=== PATIENT | male | born 1985 | race Caucasian/White ===

== ENCOUNTER 2016-09-21 11:37 | Inpatient (IN) | payer OTHER ==
[~2016-09-21] VITALS: Ht 185.4 cm; Wt 94.7 kg
[2016-09-21 11:39] VITALS: BP 124/80; PULSE 58; RESP 20; O2SAT 98
[2016-09-21] MEDS ORDERED: Ondansetron 2 mg/mL 2 mL Inj IVPUSH ONE (12:25)
[2016-09-21 12:36] LABS: BASOPHILS % (AUTO) 0.1 % (0-3); EOSINOPHILS % (AUTO) 0 % (0-5); MONOCYTES % (AUTO) 4.1 % (4-12); Mean Corpuscular Hemoglobin 30.4 pg (27.0-35.0); Mean Corpuscular Volume 87.7 fL (81-100); NEUTROPHILS % (AUTO) 87.8 % (40-74); Platelet Count 276 bil/L (150-400)
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
[2016-09-21] MEDS: HYDROmorphone 0.5 mg/0.5 mL iSecure Syringe IVPUSH PRN ×3 (12:44→21:20)
[2016-09-21 13:21] VITALS: BP 116/74; PULSE 49; O2SAT 96
[2016-09-21 13:24] LABS: Magnesium 1.8 mg/dL (1.6-2.6)
--- NOTE | 2016-09-21 15:03 | DRSVH ---
PROCEDURE: CT ABDOMEN AND PELVIS WITH CONTRAST ([id number]) INDICATIONS: Pancreatitis TECHNIQUE: After the administration of intravenous contrast, 5 mm thick sections acquired from the diaphragm to the symphysis. 5 mm coronal and sagittal reformats were acquired. For radiation dose reduction, the following was used: automated exposure control, adjustment of mA and/or kV according to patient siz e. COMPARISON: None. FINDINGS: Image quality: Excellent. ABDOMEN: Lung bases: Lung bases are clear. Heart size is normal. Solid organs: Liver and spleen are normal in size and enhancement. Gallbladder contains few non-rad iopaque gallstones and/or sludge. There is age indeterminate gallbladder wall thickening. Mild promin ence of the extrahepatic ducts are not visualized etiology. Pancreas enhances normally. However ther e is peripancreatic fat stranding. No adrenal nodules. Kidneys demonstrate normal size and enhancem ent, without hydronephrosis. Peritoneum and bowel: Bowel loops demonstrate normal wall thickness and caliber. No free air. There is mild scattered ascites. The appendix and rectum appear grossly unremarkable. No evidence of acute diverticulitis. Nodes and vessels: No retroperitoneal or mesenteric adenopathy by size criteria. Aorta and inferior vena cava are normal in size. Miscellaneous: No ventral hernias. PELVIS: Genitourinary: Bladder decompressed otherwise unremarkable. Miscellaneous: Small fat containing right inguinal hernia Bones: No suspicious bony lesions. No vertebral body compression fractures. IMPRESSION: Cholelithiasis and or gallbladder sludge. There is mild gallbladder wall thickening raising possibili ty of acute cholecystitis. Please correlate clinically and with LFTs. Peripancreatic fat stranding which is suspicious for acute pancreatitis. Recommend correlation with p ancreatic enzymes. No abscess seen. Scattered ascites. Normal appendix. Dictated by: Fuentes Zambrano M.D. on 09/21/2016 at 14:58 Approved by: Fuentes Zambrano M.D. on 09/21/2016 at 15:01
[2016-09-21] MEDS ORDERED: Alum-Mag Hydrox-Simeth 30 mL Suspension PO PRN (15:05)
[2016-09-21] MEDS ORDERED: Polyethylene Glycol (PEG) 17 Gm Powder PO PRN (15:05)
[2016-09-21] MEDS ORDERED: Ondansetron 2 mg/mL 2 mL Inj IVPUSH PRN (15:05)
[2016-09-21] MEDS ORDERED: HYDROmorphone 0.5 mg/0.5 mL iSecure Syringe IVPUSH PRN (15:10)
[2016-09-21 15:46] VITALS: BP 146/81; PULSE 61; RESP 18; O2SAT 99
--- NOTE | 2016-09-21 15:49 | PCM.CONSUR ---
Subjective Date of Service: Sep 21, 2016 History of Present Illness Mr. Dillard is a 31 year old male who presents to the ED today with right upper quadrant pain. The patient reports he has been intermittently experiencing RUQ pain for the past 18 months. In July of this year he was admitted for 3 days at [facility] with gallstone pancreatitis after presenting with a severe episode of pain. His lipase at that time was in excess of 10,000 and he was treated with conservative management. He has since been adherent to a low fat diet but continues to experience intermittent, self- limited bouts of pain. It is in this context that 2 days ago he developed severe RUQ pain, exactly similar to past episodes. This pain was rated 9/10 in severity so he was evaluated at an outside ED. There, he was given pain meds but was discharged home. His RUQ has improved, but persists in moderate severity prompting today's visit to the ED. With further questioning he describes the pain has sharp, unrelenting, waxing and waning in intensity. He has had no nausea but endorses one episode of vomiting during a severe wave of pain. He has had very little to eat or drink since the pain started. His last BM was 2 days ago and was presumably normal. He is voiding but states his urine is more concentrated appearing. He denies jaundice or fevers. Reason for Consultation Gallstone pancreatitis Allergy Allergies: Uncoded Allergies: BEES (Allergy, Unknown, 03/22/15) Past Surgical History Surgeries: No Social History Occupation: He works at a [employer] Hx Alcohol Use: No Hx Substance Use: No Hx Tobacco Use: No PMH Cardiovascular History Cardiovascular History: Denies:: Congestive Heart Failure Hypertension Respiratory Respiratory History: Denies:: Tuberculosis Other History Diabetes: No Social History Hx Alcohol Use: NoHx Substance Use: No Smoking Status: Never Smoker Living Arrangement: with Family Family History Family History: His mother had her gallbladder removed in her 40s. No other history of gallstone disease or other GI conditions. Objective Exam Vital Signs & I/O Vital Sign- Last 8 Hours Date Time Temp Pulse Resp B/P Pulse Ox O2 Delivery O2 Flow Rate FiO2 09/21/16 13:21 36.9 49 116/74 96 Room Air 09/21/16 11:39 36.6 58 20 124/80 98 Room Air Lab & Micro Results Laboratory Tests Test 7/29/17 12:27 White Blood Count 10.9th/mm3 (3.8-10.1) Red Blood Count 5.13mil/mm3 (4.40-5.80) Hemoglobin 15.6g/dL (13.8-17.2) Hematocrit 45.0% (41.0-50.0) Mean Corpuscular Volume 87.7fL (81-100) Mean Corpuscular Hemoglobin 30.4pg (27.0-35.0) Mean Corpuscular Hemoglobin Concent 34.7% (32.0-37.0) Red Cell Distribution Width 12.3% (12.3-15.4) Platelet Count 276bil/L (150-400) Neutrophils (%) (Auto) 87.8% (40-74) Lymphocytes (%) (Auto) 7.8% (14-46) Monocytes (%) (Auto) 4.1% (4-12) Eosinophils (%) (Auto) 0% (0-5) Basophils (%) (Auto) 0.1% (0-3) Sodium Level 143mEq/L (134-144) Potassium Level 3.8mEq/L (3.5-5.2) Chloride Level 104mEq/L (97-108) Carbon Dioxide Level 23mmol/L (18-29) Blood Urea Nitrogen 7mg/dL (6-20) Creatinine 0.81mg/dL (0.76-1.27) Estimat Glomerular Filtration Rate 117mL/min (>59) Glucose Level 118mg/dL (60-99) Calcium Level 9.5mg/dL (8.5-10.1) Magnesium Level 1.8mg/dL (1.6-2.6) Total Bilirubin 1.0mg/dL (0.0-1.2) Aspartate Amino Transf (AST/SGOT) 143U/L (0-50) Alanine Aminotransferase (ALT/SGPT) 269U/L (0-44) Alkaline Phosphatase 97U/L (25-150) Total Protein 7.0g/dL (6.4-8.4) Albumin 4.6g/dL (3.4-5.0) Lipase 3420U/L (13-60) Hold Shafer Top Tube Received (Received) Result Diagram: 09/21/16 1227 7/29/17 1227 Review of Systems: Constitutional: Negative, except as otherwise mentioned in the history above. Ophthalmologic: Negative, except as otherwise mentioned in the history above. Cardiovascular: Negative, except as otherwise mentioned in the history above. Respiratory: Negative, except as otherwise mentioned in the history above. Gastrointestinal: Negative, except as otherwise mentioned in the history above. Genitourinary: Negative, except as otherwise mentioned in the history above. Musculoskeletal: Negative, except as otherwise mentioned in the history above. Neurological: Negative, except as otherwise mentioned in the history above. Psychiatric: Negative, except as otherwise mentioned in the history above. Hematologic/Lymphatic: Negative, except as otherwise mentioned in the history above. Allergic/Immunologic: Negative, except as otherwise mentioned in the history above. Additional Information CT A/P obtained 07/27/2016 reveals common bile duct dilation to 7 mm with question of a distal common duct stone. There is peripancreatic fat stranding and haziness consistent with acute pancreatitis. US abdomen obtained 07/27/16 reveals numerous gall stones, no gallbladder wall thickening. H&P Surgical Exam Exam General: Alert, Oriented X3, Cooperative, No Acute Distress HEENT: Within normal limits & unremarkable Neck: Within normal limits & unremarkable Respiratory: Clear to Auscultation Cardiac: Exam Unremarkable Abdomen: Other (Soft and nondistended. Tender in the RUQ, LLQ and RLQ, but most severely in the RUQ. Negative muprhy's sign. No appreciable masses. ) Breasts: Not Indicated Pelvic: Not Indicated Assessment & Plan Assessment 31M with cholelithiasis and recurrent gallstone pancreatitis. Plan: Given that the patient has gallstone pancreatitis, he should be admitted to the medicine service for management likely to consist of NPO status, pain control, and IV hydration. He should not proceed to the operating room at this time, given his pancreatic inflammation. However, we will perform a cholecystectomy prior to discharge. This was explained to the patient and his and they are in agreement of the plan. We will continue to follow along in the patient' s care and proceed to the operating room once his lipase downtrends or begins to normalize. Thank you for the interesting consultation. This case was discussed with Dr. Wing. Morgan Hung MD Sep 21, 2016 15:49
[2016-09-21] MEDS: Heparin 5,000 Unit/mL Inj SUBQ SCH (16:09)
[2016-09-21] MEDS: 0.9% Sodium Chloride 1,000 ML IV SCH ×2 (16:10→21:19)
--- NOTE | 2016-09-21 16:28 | NUR ---
Admit Pt admitted to 1012. AOX3. Full admission completed. Pt NPO, NS infusing X1 Liter per M.D. orders. Pain meds PRN. Independent in room. Oriented to room. No tele. Care ongoing. Pt aware of plan of care.
[2016-09-21 20:40] VITALS: BP 110/61; PULSE 73; RESP 16; O2SAT 97
[2016-09-21] MEDS: Famotidine Inj 20 MG in IV Premix 1 EACH IV SCH (21:19)
[2016-09-22] MEDS: Heparin 5,000 Unit/mL Inj SUBQ SCH ×3 (00:10→17:25)
[2016-09-22 00:35] VITALS: BP 110/63; PULSE 57; RESP 16; O2SAT 95
--- NOTE | 2016-09-22 00:51 | PCM.HPMED ---
Subjective Date of Service Sep 21, 2016 Primary Provider: Admitting Physician: Alexsandra Wing MD Primary Care Physician: Ronny Martinez MD Attending Physician: Alexsandra Wing MD Admit Status: From the Emergency Department, Admit to [place] Team Chief Complaint: Abdominal pain History of Present Illness: Mr. Dillard is a 31 year old male who presents to the ED today with right upper quadrant pain and epigastric pain. The patient reports he has been intermittently experiencing RUQ pain for the past 18 months. In July of this year he was admitted for 3 days at [facility] with gallstone pancreatitis after presenting with a severe episode of pain. His lipase at that time was in excess of 10,000 and he was treated with conservative management. He has since been adherent to a low fat diet but continues to experience intermittent, self- limited bouts of crampy pain. It is in this context that 2 days ago he developed severe RUQ pain, exactly similar to past episodes. This pain was rated 9/10 in severity so he was evaluated at [facility] ED. There, he was given narcotics and was discharged home. His RUQ has improved, but persists in moderate severity prompting today's visit to the [facility] ED. With further questioning he describes the pain has sharp, unrelenting, waxing and waning in intensity. He denies radiation to his shoulder blades are back. He has had no nausea but endorses one episode of vomiting during a severe wave of pain. He has had very little to eat or drink since the pain started. His last BM was 2 days ago and was presumably normal (Goes every other day at his base line). He is voiding but states his urine is more concentrated appearing. He denies jaundice or fevers. Patient states he is healthy at base line, currently in the room. As 5-110 depending on when he got pain medication In the ER patient's labs are fairly unremarkable with the exception of AST is 143 ALT is 269 lipase 3420. 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 [place] Hx Alcohol Use: No Hx Substance Use: No Hx Tobacco Use: No Smoking Status: Never Smoker Living Arrangement: with Family Exam Vital Signs Vital Sign - Last Date Time Temp Pulse Resp B/P Pulse Ox O2 Delivery O2 Flow Rate FiO2 09/21/16 13:21 36.9 49 116/74 96 Room Air 09/21/16 11:39 20 Exam General: Pleasant, age-appropriate male in no acute distress HEENT: PERRLA, EOMI, nonicteric, membranes moist Lymph: No lymphadenopathy Cardio: Regular rate and rhythm no murmurs rubs or gallops Respiratory: CTA bilaterally, no wheezes, no crackles Abdomen: Soft, positive bowel sounds, mild tenderness over epigastrium and RUQ Extremities: No edema, 4.5/5 strength, sensation intact Psych: Appropriate mood and affect Neuro: Alert and Oriented x 3 Skin: No rash Neck: No JVD, trachea is central Lab and Diagnostics Result Diagram: 09/21/16 1227 09/21/16 1227 X-Rays, CTs and MRIs INDICATIONS: Pancreatitis IMPRESSION: Cholelithiasis and or gallbladder sludge. There is mild gallbladder wall thickening raising possibility of acute cholecystitis. Please correlate clinically and with LFTs. Peripancreatic fat stranding which is suspicious for acute pancreatitis. Recommend correlation with pancreatic enzymes. No abscess seen. Scattered ascites. Normal appendix. Dictated by: Fuentes Zambrano M.D. on 09/21/2016 at 14:58 Approved by: Fuentes Zambrano M.D. on 09/21/2016 at 15:01 Assessment & Plan Acute Pancretitis, POA -- NSS 200 cc/hr--> NSS 150 cc/hr -- Improved control with Dilaudid 0.25 mg every 3 hours when necessary, ketorolac 30 mg every 6 hours when necessary -- Discuss with GI whether there is a need for MRCP, patient has stones, mild inflammation of the gallbladder, no CBD dilation on CT scan Acute cholecystitis with an admission -- Consult general surgery, that already aware -- Pain control as above -- Once pancreatitis calms down patient will be taken to the OR per surgery -- Patient has no fevers, we will work with the Center to see if antibiotics are called for Nausea, present on admission -- Continue IV Zofran Abdominal pain, is about admission -- Continue pain medications as above Pain Evaluation: Adequate Pain Control Resuscitation Status: CPR: Attempt Resuscitation ( is his ADM) Time spent 40 min Emeli Kingston DO Sep 21, 2016 15:07
[2016-09-22] MEDS: 0.9% Sodium Chloride 1,000 ML IV SCH ×6 (03:55→22:10)
--- NOTE | 2016-09-22 05:40 | NUR ---
NOC PT pain has been minimal through the night. PT medicated so far with dilaudid once and toradol twice. Toradol works well for him. NS infusing at 150ml. PT voiding per urinal briana colored urine. NPO. VS WNL. No nausea reported. WIll CTM. SLept well.
[2016-09-22 06:33] VITALS: BP 103/64; O2SAT 98
[2016-09-22 07:01] LABS: BASOPHILS % (AUTO) 0.2 % (0-3); MONOCYTES % (AUTO) 7.3 % (4-12); Mean Corpuscular Hemoglobin 30.6 pg (27.0-35.0); Mean Corpuscular Volume 89.4 fL (81-100); NEUTROPHILS % (AUTO) 71.3 % (40-74); Platelet Count 237 bil/L (150-400)
[2016-09-22] MEDS ORDERED: Potassium Chloride Inj 20 MEQ in Dextrose 5% 250 ML IV ONE (07:55)
--- NOTE | 2016-09-22 09:08 | NUR ---
MRI Pt SL to leave via WC to MRI.
--- NOTE | 2016-09-22 09:36 | PCM.PNSURG ---
Subjective Date of Service: Sep 22, 2016 Visit Information: Gallstone Pancreatitis Date of Admission: Sep 21, 2016 at 13:50 Hospital Day # 2 Subjective: Pain improving Objective Vital Sign- Last 8 Hours Date Time Temp Pulse Resp B/P Pulse Ox O2 Delivery O2 Flow Rate FiO2 09/22/16 06:33 37.1 103/64 98 Room Air Intake and Output- Last 8 Hour 09/22/16 Cumulative From/Thru 07:00 09/21/16 11:39 - 09/22/16 06:33 Intake Total 0 ml 391 ml Output Total 450 ml 700 ml Balance -450 ml -309 ml Intake Oral 0 ml 0 ml IV Total 391 ml Output Urine Total 450 ml 700 ml # Bowel Movements 0 0 Abdomen: Soft, Other (minimal tenderness) Result Diagram: 09/22/16 0610 09/22/16 0610 Assessment & Plan Impression Gallstone Pancreatitis - Improving Problems: Plan Clear liquid diet with NPO in AM until rounds every morning Follow Amylase & Lipase daily Will plan Lap Leia with grams sometime this week prior to discharge Ambulate Incentive spirometry Resuscitation Status: CPR: Attempt Resuscitation ( is his ADM) Alexsandra Wing MD Sep 22, 2016 09:36
[2016-09-22] MEDS: Famotidine Inj 20 MG in IV Premix 1 EACH IV SCH ×2 (09:48→21:28)
--- NOTE | 2016-09-22 10:11 | DRSVH ---
PROCEDURE: MR ABDOMEN MRCP INDICATIONS: lipase elevation TECHNIQUE: Coronal HASTE through the abdomen, axial 2-D FLASH in- and [id number]-tktav, and breath-hold T2 FSE with fat saturation through the biliary system and pancreas. Oblique coronal and axial thin-slice HASTE, radial thick-slab HASTE centered on the extrahepatic bile ducts. Intravenous secretin: Not requested. COMPARISON: [facility], CT, CT ABD PELVIS W CON, 09/21/2016, 14:33. FINDINGS: Image quality: There is mild motion artifact. Pancreas and biliary system: There are numerous gallstones within the gallbladder with mild gallblad jesse wall thickening. A small amount of free fluid is noted. No intra-or extrahepatic biliary ductal dilatation. No discrete filling defects demonstrated within the common bile duct to suggest choledo cholithiasis. No pancreatic duct dilatation. There is peripancreatic edema and fluid compatible wit h acute pancreatitis. No pseudocyst identified. Other solid organs: Liver and spleen are normal in size. No adrenal nodules. Kidneys demonstrate n o hydronephrosis. Nodes and vessels: No retroperitoneal or mesenteric adenopathy by size criteria. Aorta and inferior vena cava are normal in size. Bowel and peritoneum: Visualized bowel loops are normal in caliber. There is a small amount of intra peritoneal free fluid predominantly along the anterior pararenal spaces and tracking along the paraco lic gutters. Lung bases: The minimal bilateral pleural effusions. Heart size is normal. Bones and soft tissues: No ventral hernias. Bone marrow is of normal overall signal. IMPRESSION: 1. Cholelithiasis with mild gallbladder wall thickening which is nonspecific but may reflect develop ing acute cholecystitis. Recommend correlation clinically and with ultrasound if indicated. 2. No biliary ductal dilatation or definite choledocholithiasis. 3. Peripancreatic fluid and edema compatible with acute pancreatitis without evidence of pseudocyst. No pancreatic duct dilatation. 4. Small amount of intraperitoneal free fluid likely related to pancreatitis. Dictated by: Lars Angelo M.D. on 09/22/2016 at 10:10 Approved by: Lars Angelo M.D. on 09/22/2016 at 10:10
[2016-09-22 10:37] VITALS: BP 108/66; PULSE 66; RESP 18; O2SAT 99
--- NOTE | 2016-09-22 16:24 | NUR ---
Social Work: Screening/Multidisciplinary Rounds D: EMR reviewed. Pt is a 31 y/o male admitted [facility] for bilary colic per H&P. Pt's insurance is [employer] and PCP is Ronny Martinez MD. Pt's NOK is spouse Radha Dillard [phone]. Pt lives at home with his family in [place]. Pt discussed in multidisciplinary rounds, pt likely to discharge tomorrow. MD did not identify any SW needs - pt is independent at baseline. Per admit RN, pt refused DPOA/advanced directive ppw upon admit. SW discussed potential needs - no needs identified. No MD orders received. A: Pt who is independent at baseline P: Pt likely to discharge home via POV when medically stable. No SW needs indicated during multidisciplinary rounds. No MD orders received. SW will continue to follow for needs that may arise prior to discharge. MIKE Delacruz
--- NOTE | 2016-09-22 18:01 | NUR ---
Pain / Ambulation Pain controlled with no complaints all day. Ambulates with steady gait independently. Care continues
[2016-09-22 21:02] VITALS: BP 122/74; PULSE 86; RESP 16; O2SAT 97
--- NOTE | 2016-09-22 21:16 | PCM.PNMED ---
Subjective Date of Service Sep 22, 2016 Subjective Patient is seen and examined. He is feeling better pain is well controlled on his current regimen. Lipase is trending down, no other concerns Exam Vital Signs Vital Sign - Last Date Time Temp Pulse Resp B/P Pulse Ox O2 Delivery O2 Flow Rate FiO2 09/22/16 10:37 37.1 66 18 108/66 99 Room Air Intake and Output 09/21/16 09/21/16 09/22/16 Cumulative From/Thru 15:00 23:00 07:00 09/21/16 11:39 - 09/22/16 06:33 Intake Total 391 ml 0 ml 391 ml Output Total 250 ml 450 ml 700 ml Balance 141 ml -450 ml -309 ml Intake Oral 0 ml 0 ml 0 ml IV Total 391 ml 391 ml Output Urine Total 250 ml 450 ml 700 ml # Bowel Movements 0 0 0 Exam General: Pleasant, age-appropriate male in no acute distress HEENT: PERRLA, EOMI, nonicteric, membranes moist Lymph: No lymphadenopathy Cardio: Regular rate and rhythm no murmurs rubs or gallops Respiratory: CTA bilaterally, no wheezes, no crackles Abdomen: Soft, positive bowel sounds, mild tenderness over epigastrium and RUQ Extremities: No edema, 4.5/5 strength, sensation intact Psych: Appropriate mood and affect Neuro: Alert and Oriented x 3 Skin: No rash Neck: No JVD, trachea is central IVs and Medications IV Fluids NSS 125 cc/hr Medications Reviewed: Medications were reviewed in detail Lab and Diagnostics Result Diagram: 09/22/16 0610 09/22/16 0610 X-Rays, CTs and MRIs INDICATIONS: Pancreatitis IMPRESSION: Cholelithiasis and or gallbladder sludge. There is mild gallbladder wall thickening raising possibility of acute cholecystitis. Please correlate clinically and with LFTs. Peripancreatic fat stranding which is suspicious for acute pancreatitis. Recommend correlation with pancreatic enzymes. No abscess seen. Scattered ascites. Normal appendix. Dictated by: Fuentes Zambrano M.D. on 09/21/2016 at 14:58 Approved by: Fuentes Zambrano M.D. on 09/21/2016 at 15:01 Assessment & Plan Acute Pancretitis, POA -- NSS 200 cc/hr--> NSS 150 cc/hr--> NSS 125 cc/hr -- Improved control with Dilaudid 0.25 mg every 3 hours when necessary, ketorolac 30 mg every 6 hours when necessary -- MRCP is ordered: "No biliary ductal dilatation or definite choledocholithiasis." Discussed case on curbside with Dr. Blair, no formal gI consult at this time Acute cholecystitis poa active -- Consult general surgery, they are already aware -- Pain control as above -- Once pancreatitis calms down patient will be taken to the OR per surgery -- Patient has no fevers, we will hold off on antibiotics at this time Nausea, present on admission -- Continue IV Zofran Abdominal pain, is about admission -- Continue pain medications as above Pain Evaluation: Adequate Pain Control VTE Mechanical Devices: Intermittant Pneumatic CD Resuscitation Status: CPR: Attempt Resuscitation ( is his ADM) Time spent 25 min Emeli Kingston DO Sep 22, 2016 21:14
[2016-09-23] VITALS (8 sets, daily range): BP systolic 104–131; BP diastolic 61–79; PULSE 54–82; RESP 14–17; O2SAT 95–99
[2016-09-23] MEDS: Heparin 5,000 Unit/mL Inj SUBQ SCH ×3 (01:21→16:30)
--- NOTE | 2016-09-23 01:57 | NUR ---
Activity Pt states no pain, no complaints of SOB or CP. IV fluids continued at 125 ml/h NS. Remaining NPO for possible gallbladder removal. Independent in room. Care continues
[2016-09-23] MEDS: 0.9% Sodium Chloride 1,000 ML IV SCH ×2 (05:32→14:10)
[2016-09-23] MEDS ORDERED: Dextrose 10% 250 ML IV SCH (09:10)
[2016-09-23] MEDS ORDERED: Dextrose 10% 250 ML IV ONE (09:10)
[2016-09-23] MEDS: Famotidine Inj 20 MG in IV Premix 1 EACH IV SCH ×2 (09:52→19:44)
[2016-09-23] MEDS ORDERED: Lactated Ringer's 1,000 ML IV ONE ×2 (10:38→14:06)
[2016-09-23] MEDS ORDERED: Neostigmine 1 mg/mL 10 mL Inj ONE (10:44)
[2016-09-23] MEDS ORDERED: Propofol 10,000 mCg/mL 20 mL Inj ONE (10:44)
[2016-09-23] MEDS ORDERED: Dexamethasone 4 mg/mL Inj ONE (10:44)
[2016-09-23] MEDS ORDERED: Glycopyrrolate 0.2 MG/ML 1mL Inj ONE (10:44)
[2016-09-23] MEDS ORDERED: fentaNYL-PF 50 mCg/mL 2 mL Inj ONE (10:44)
[2016-09-23] MEDS ORDERED: Rocuronium 10 mg/mL 5 mL Inj ONE (10:44)
[2016-09-23] MEDS ORDERED: Ondansetron 2 mg/mL 2 mL Inj ONE (10:44)
--- NOTE | 2016-09-23 11:42 | NUR ---
Blood sugar/Off unit to OR NPO for previous couple of days per patient, BS at 0900 was 60. MD paged and pharmacist notified for hypoglycemia protocol. D10 in 250cc administered over 15 minutes; BS at 0930 was 142. He was asymptomatic throughout. Report given to Bianca in OR and pt taken to surger at 1120. Consent signed and in chart. SCD's with pt. accompanying. All questions answered and pt is eager to proceed.
[2016-09-23] MEDS ORDERED: Lactated Ringer's 1,000 ML IV SCH (11:46)
[2016-09-23] MEDS ORDERED: Lactated Ringer's 500 ML IV PRN (11:46)
--- NOTE | 2016-09-23 11:46 | PCM.HPANE ---
Patient Data Surgeon Admitting Provider:Alexsandra Wing MD Attending Provider:Emeli Kingston DO Primary Care Physician:Ronny Martinez MD Other Provider: Reason for Visit Biliary Colic Ht/WT & BMI Height (Feet): 6 Height (Inches): 1.00 Weight (Kilograms): 95.000 Body Mass Index 27.76 Allergies Uncoded Allergies: BEES (Allergy, Unknown, 03/22/15) Past Anesthesia History Anesthesia History: Denies:: Abnormal Airway, Anesthesia Reactions, Difficult Intubation, Fam Anesthesia Reaction, Fam Malignant Hypertherm, Malignant Hyperthermia Diabetes History Hx Diabetes?: No Current Bedside Blood Glucose: 142 MRSA MRSA: No Medications Hypertension Medication: No Home Meds Incl Beta Lisa: No History History of ENT Problems?: No HEENT History: Denies:: Abnormal Airway Cataracts Difficult Intubation Dysphagia Glaucoma Hearing Problem Sinus Problem TMJ Denture Type: None Teeth Condition: Within Normal Limits Hx of Heart Problems?: No Cardiovascular History: Denies:: AICD Abdominal Aortic Aneurism Atrial Fibrillation Cardiac Surgery Chest Pain Congestive Heart Failure Coronary Artery Disease Edema Heart Murmur Hypertension Irregular Heartbeat Pacemaker Peripheral Vascular Rheumatic Fever Thrombophlebitis Valvular Heart Disease Hx of Respiratory Problem?: No Respiratory History: Denies:: Asthma COPD Chest Surgery Cough Dyspnea Emphysema Hemoptysis Oxygen Administration Pneumonia Pulmonary Embolism Tuberculosis Use of C-PAP Machine Use of Inhalers / NEBS Hx Neurologic Problems?: No Neurological History: Denies:: Alzheimer's Disease CVA Dementia Dizziness Headaches Multiple Sclerosis Parkinson's Disease Peripheral Neuropathy Seizures TIA Hx of GI Problems?: No Hx of Problems?: No Male Hx: Denies:: Prostate Problems Scrotal Mass Testicular Surgery Hx Musculoskeletal Problems?: No Hx of Psycho/Social Problems?: No Hx Surgeries?: No Hx Any Other Health Problems?: Yes Other History: Positive for:: Hospitalization (pancreatitis ) Denies:: Cancer Thyroid Disease History Blood Transfusions: Positive for:: Accept Blood Products? 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 [place] Hx Alcohol Use: NoHx Substance Use: No Smoking Status: Never Smoker Stop/Bang Treated for Sleep Apnea?: No Do You Have a CPAP Machine?: No S-Snoring: Do You Snore Loudly: No T-Tired: feel tired, fatigued: No O-Obsered: Observed not breath: No P-Blood Pressure: treated: No B- Body Mass Index > 35 kg/m2: No A- Age over 50: No N- Neck Large Circumference: No G- Gender Male: Yes MAYELA Total Score: 1 MAYELA Risk Assessment: Low Risk, <3 Yes Risk Assessment Category Category 1A: Patient has history of documented sleep apnea, and HAS NOT received any narcotic, sedative or anesthesia administration during this stay. Category 1B: Patient has history of documented sleep apnea, and HAS received any narcotic , sedative or anesthesia administration during this stay Category 2: Patient has SUSPECTED Obstructive Sleep Apnea, and HAS received any narcotic , sedative or anesthesia administration during this stay. Category 3: Patient has SUSPECTED Obstructive Sleep Apnea and HAS NOT received narcotic, sedative or anesthesia administration during this stay. Category 4: Outpatient in Procedural Areas with known sleep apnea or who screen positive for High Risk via the STOP/BANG questionnaire. Exam Exam Vital Signs Vital Signs Date Time Temp Pulse Resp B/P Pulse Ox O2 Delivery O2 Flow Rate FiO2 09/23/16 06:12 36.9 82 104/61 General Appearance: Alert, Oriented X3, Cooperative, No Acute Distress HEENT/AIRWAY: MP 2 Lungs: Clear to Auscultation, Normal Air Movement Heart: Exam Unremarkable, Regular Rate/Rhythm, No Murmurs/Rubs/Gallops Meds/Labs/Diagnostics Admission Meds Current Medications Dextrose/Water (D10w) 250 ml @ 1,000 mls/hr Q15M ONCE IV Last administered on 09/23/16t 09:13; Start 09/23/16 at 09:10; Stop 09/23/16 at 09:24; Status DC Bedside Blood Glucose: 142 Labs Test 09/21/16 12:27 09/21/16 15:38 09/22/16 06:10 09/22/16 14:08 Hold Shafer Top Tube Received (Received) Hold Urine Received (Received) White Blood Count 8.9th/mm3 (3.8-10.1) Red Blood Count 4.44mil/mm3 (4.40-5.80) Hemoglobin 13.6g/dL (13.8-17.2) Hematocrit 39.7% (41.0-50.0) Mean Corpuscular Volume 89.4fL (81-100) Mean Corpuscular Hemoglobin 30.6pg (27.0-35.0) Mean Corpuscular Hemoglobin Concent 34.3% (32.0-37.0) Red Cell Distribution Width 12.1% (12.3-15.4) Platelet Count 237bil/L (150-400) Neutrophils (%) (Auto) 71.3% (40-74) Lymphocytes (%) (Auto) 18.1% (14-46) Monocytes (%) (Auto) 7.3% (4-12) Eosinophils (%) (Auto) 3.0% (0-5) Basophils (%) (Auto) 0.2% (0-3) Magnesium Level 1.7mg/dL (1.6-2.6) Triglycerides Level 79mg/dL (0-149) Cholesterol Level 110mg/dL (100-199) LDL Cholesterol, Calculated 60.200mg/dL (0-99) VLDL Cholesterol 15.800mg/dL HDL Cholesterol 34mg/dL (>39) Cholesterol/HDL Ratio 3.24 (0.0-4.4) Test 09/23/16 04:53 Sodium Level 142mEq/L (134-144) Potassium Level 3.7mEq/L (3.5-5.2) Chloride Level 103mEq/L (97-108) Carbon Dioxide Level 19mmol/L (18-29) Blood Urea Nitrogen 7mg/dL (6-20) Creatinine 0.68mg/dL (0.76-1.27) Estimat Glomerular Filtration Rate 144mL/min (>59) Glucose Level 66mg/dL (60-99) Calcium Level 8.4mg/dL (8.5-10.1) Total Bilirubin 0.7mg/dL (0.0-1.2) Aspartate Amino Transf (AST/SGOT) 28U/L (0-50) Alanine Aminotransferase (ALT/SGPT) 106U/L (0-44) Alkaline Phosphatase 67U/L (25-150) Total Protein 6.0g/dL (6.4-8.4) Albumin 3.8g/dL (3.4-5.0) Amylase Level 348U/L (28-100) Lipase 131U/L (13-60) Plan Impression Patient chart reviewed, patient interviewed and anesthestic plan with risks, benefits, and alternatives discussed, and informed consent obtained. NPO per Anesth. Guidelines: Yes ASA Physical Status: ASA1 Normal Healthy Anesthetic Plan: GA Bene/Risks/Altern/Consents: Yes HP Complete Prior to Induction: Yes Klever Corona MD Sep 23, 2016 10:40
[2016-09-23] MEDS ORDERED: Labetalol 5 mg/mL 4 mL Inj IV PRN (11:50)
[2016-09-23] MEDS ORDERED: EPHEDrine Sulfate 50 mg/mL Inj IVPUSH PRN (11:50)
[2016-09-23] MEDS ORDERED: fentaNYL-PF 50 mCg/mL 2 mL Inj IVPUSH PRN (11:50)
[2016-09-23] MEDS ORDERED: MetoCLOpramide 5 mg/mL 2 mL Inj IVPUSH PRN ×2 (11:50→14:00)
[2016-09-23] MEDS ORDERED: HYDROmorphone 1 mg/mL Inj IVPUSH PRN (11:50)
[2016-09-23] MEDS ORDERED: Atropine 0.4 mg/mL Inj IVPUSH PRN (11:50)
[2016-09-23] MEDS ORDERED: Phenylephrine 10,000 mCg/mL Inj IVPUSH PRN (11:50)
[2016-09-23] MEDS ORDERED: Ondansetron 2 mg/mL 2 mL Inj IVPUSH PRN ×2 (11:50→14:00)
[2016-09-23] MEDS ORDERED: CeFAZolin 2 Gm/50 mL D5W Duplex Bag IV ONE (12:05)
[2016-09-23] MEDS ORDERED: Iopamidol-300 50 mL Inj IV ONE (12:10)
[2016-09-23] MEDS ORDERED: Bupivacaine-MPF 0.5% 30 mL Inj INJ ONE (12:10)
[2016-09-23] MEDS ORDERED: Dextrose 5% 0.45% NaCl 1,000 ML IV SCH (13:57)
[2016-09-23] MEDS ORDERED: oxyCODONE-Acetamin 5-325 mg Tablet PO PRN (14:00)
[2016-09-23] MEDS ORDERED: HYDROmorphone 0.5 mg/0.5 mL iSecure Syringe IVPUSH PRN (14:00)
--- NOTE | 2016-09-23 14:00 | PCM.ANEP1 ---
Post Anesthesia PACU Phase 1 Assessment Vital Signs VSS in PACU. See RN notes for values. Vital Signs Date Time Temp Pulse Resp B/P Pulse Ox O2 Delivery O2 Flow Rate FiO2 09/23/16 06:12 36.9 82 104/61 Anesthetic Administered: GA Level of Alertness: Sleepy, easy to arouse REDD's with Equal Strength: Yes Pain: No Nausea or Vomiting: No CV Function & Hydration Stable: Yes Airway Device: Oxygen Delivery: Nasal Cannula Lungs: Clear to Auscultation, Normal Air Movement PACU Phase 2 Assessment Complications: No Follow up Care: N/A Patient Instructions Provided: N/A Klever Corona MD Sep 23, 2016 14:00
--- NOTE | 2016-09-23 14:39 | DRSVH ---
PROCEDURE: X-RAY OPERATIVE CHOLANGIOGRAM ([id number]) INDICATIONS: CHOLANGIOGRAM COMPARISON: [facility], MR, MR ABD MRCP, 09/22/2016, 8:48. FINDINGS: Biliary ducts: The surgeon injected contrast into the biliary ducts after cannulation of the cystic duct stump. Visualized intra- and extrahepatic bile ducts are normal in caliber, without strictures. No intraluminal filling defects to suggest retained ductal stones or sludge. No evidence for iatro genic ductal injury. Duodenum: Contrast flows promptly through the sphincter of Oddi into the duodenum, which appears nor mal in caliber. IMPRESSION: Normal operative cholangiogram. Dictated by: Evans Garcia RRA Interpreted: Kirstin Swartz MD on 09/23/2016 at 13:10 Approved by: Kirstin Swartz MD, PhD on 09/23/2016 at 14:35
--- NOTE | 2016-09-23 14:51 | NUR ---
Return from OR Patient returned to room 1012 at 1445, report taken from TIMI Cowan. Patient able to ambulate to the BR and tolerated well, mild dizziness noted. He denies nausea and reports minimal pain, refusing medication at this time. Dr. Wing attempted to call , but she did not answer.
--- NOTE | 2016-09-23 15:49 | PCM.SURGPO ---
Immediate Operative Note Date of Surgery: Sep 23, 2016 Pre Operative Diagnosis Gallstone pancreatitis Post Operative Diagnosis Gallsone Pancreatitis Procedure Lap Leia with cholangiogram Surgeon and Signing Agent Surgeon: Alexsandra Wing MD Assistants: Mikhail Lopez, PAC Findings Cholangiogram looked good Complications There were no periprocedural complications identified. Surgical Specimen Removed: Yes Specimen sent to Pathology: Yes Anesthetic Administered: GA Grafts, Implants: None Output, Estimated Blood Loss: 1 Blood Admin during surgery: No Attending Statement Consumer Advocate listed was medically necessary for the successful completion of the operation Alexsandra Wing MD Sep 23, 2016 15:49
--- NOTE | 2016-09-23 22:14 | OP ---
[address] [address] OPERATIVE REPORT PATIENT: MILY ESQUEDA : 1985 MR#: [id number] ADMIT: 09/21/2016 JOB ID: [id number] DATE OF SURGERY: 09/23/2016 PREOPERATIVE DIAGNOSIS(ES): Gallstone pancreatitis. POSTOPERATIVE DIAGNOSIS(ES): Gallstone pancreatitis. PROCEDURE PERFORMED: Laparoscopic cholecystectomy with intraoperative cholangiogram. SURGEON: Alexsandra Wing MD. COMMANDING OFFICER MOTORIZED SQUAD: Mikhail Lopez PA-C. INDICATIONS: The patient is a 31-year-old gentleman who developed gallstone pancreatitis and was diagnosed, admitted and discharged from [facility] in early July. I then saw him in surgical consultation in clinic and booked him for laparoscopic cholecystectomy, but he ended up developing another episode of pancreatitis prompting him to come to the emergency department over the weekend. Then, he slowly improved over the next couple of days and he is brought to the operating room today after discussing the risks, benefits and alternatives. PROCEDURE DETAILS: He was placed in a supine position, underwent smooth induction of general anesthesia. Abdomen was prepped and draped in the usual sterile fashion. Surgical time-out was undertaken using safety checklist and all were in agreement. I began by making an infraumbilical incision and entered the abdomen using open Kai technique. I then placed three 5 mm ports, two in the right upper quadrant and one in the epigastrium. We then placed him in reverse Trendelenburg position and retracted the gallbladder cephalad and to the right and incised the triangle of Calot anteriorly and posteriorly. I dissected the cystic artery and divided between clips and then dissected the cystic duct and clipped it toward the specimen and obtained a cholangiogram, which showed some initial resistance near the ampulla of Vater, but I was able to flush through with continued contrast. After that, I clipped the cystic duct doubly on the patient's side and divided it. I then dissected the rest of the gallbladder off the liver bed with good hemostasis. I then placed the gallbladder in an EndoCatch bag and suctioned all fluid free from the right upper quadrant. Then, I removed the gallbladder along with the bag, desufflated the abdomen, and closed the umbilical port site with [id number] 0-Vicryl suture. This was skin was reapproximated with 4-0 Monocryl. Steri-Strips and sterile dressing were applied. Patient was recovered from anesthesia and was taken to the recovery room in stable condition.
--- NOTE | 2016-09-23 23:38 | PCM.PNMED ---
Subjective Date of Service Sep 23, 2016 Subjective Patient is seen and examined. He is s/p lap lindy, went w/o complications per postop note. He is eating crackers. Had a hypoglycemic episode at BG of 60 this am, but says he had no symptoms. No other concerns Exam Vital Signs Vital Sign - Last Date Time Temp Pulse Resp B/P Pulse Ox O2 Delivery O2 Flow Rate FiO2 09/23/16 20:06 36.7 61 16 117/75 95 Room Air 09/23/16 14:10 2 Intake and Output 09/22/16 09/22/16 09/23/16 Cumulative From/Thru 15:00 23:00 07:00 09/21/16 11:39 - 09/23/16 06:12 Intake Total 1808 ml 1807 ml 1378 ml 5384 ml Output Total 1250 ml 1050 ml 3000 ml Balance 1808 ml 557 ml 328 ml 2384 ml Intake Oral 0 ml 0 ml 0 ml IV Total 1808 ml 1807 ml 1378 ml 5384 ml Output Urine Total 1250 ml 1050 ml 3000 ml # Bowel Movements 0 0 0 Exam General NAD HEENT NCAT Heart: RRR, no s3/s4 Lungs: CTA, no crackles or wheezes Abd: Mild distension, bowel sounds+ Ext: neg for edema Neuro: No focal deficits Psych: Neg for agitation IVs and Medications Medications Reviewed: Medications were reviewed in detail Lab and Diagnostics Result Diagram: 09/22/16 0610 09/23/16 0453 X-Rays, CTs and MRIs INDICATIONS: Pancreatitis IMPRESSION: Cholelithiasis and or gallbladder sludge. There is mild gallbladder wall thickening raising possibility of acute cholecystitis. Please correlate clinically and with LFTs. Peripancreatic fat stranding which is suspicious for acute pancreatitis. Recommend correlation with pancreatic enzymes. No abscess seen. Scattered ascites. Normal appendix. Dictated by: Fuentes Zambrano M.D. on 09/21/2016 at 14:58 Approved by: Fuentes Zambrano M.D. on 09/21/2016 at 15:01 Assessment & Plan AM Hypoglycemia acute -- Patient was not eating since 4-5 days ago at home, was npo here. -- Hypoglycemia Protocol was given -- A1C is ordered and pending. Acute Pancreatitis, POA resolved -- NSS 200 cc/hr--> NSS 150 cc/hr--> NSS 125 cc/hr -- Improved control with Dilaudid 0.25 mg every 3 hours when necessary, ketorolac 30 mg every 6 hours when necessary -- MRCP is ordered: "No biliary ductal dilatation or definite choledocholithiasis." Discussed case on curbside with Dr. Blair, no formal gI consult at this time --Lipase is trending down, 131 on 09/23. Surgery took pt to OR, lap lindy was done. No postop complications -- Surgery cleared pt for d/c but patient wanted to spend overnight prior to d/c Acute cholecystitis poa active resolved -- Consult general surgery, they are already aware -- Pain control as above -- Patient is s/p cholecystectomy Nausea, present on admission -- Continue IV Zofran Abdominal pain, present on admission -- Continue pain medications as above Pain Evaluation: Adequate Pain Control VTE Mechanical Devices: Intermittant Pneumatic CD Resuscitation Status: CPR: Attempt Resuscitation ( is his ADM) Time spent 25 min Emeli Kingston DO Sep 23, 2016 23:38
[2016-09-24] MEDS: Heparin 5,000 Unit/mL Inj SUBQ SCH ×2 (00:10→08:30)
[2016-09-24] MEDS: 0.9% Sodium Chloride 1,000 ML IV SCH (00:21)
--- NOTE | 2016-09-24 04:39 | NUR ---
Pain Patient is alert and oriented x3. Pleasant and able to make needs known. No decreased in LOC noted. Tolerating care well with no complain of pain. Ambulates to bathroom independently with no safety issue noted. Serosanguineous drainage noted on lap site around umbilical area. Dressing changed with no complain of pain or discomfort. Pt is resting comfortably in bed and call light w/in reach.
[2016-09-24 05:13] VITALS: BP 121/66; PULSE 69; RESP 16; O2SAT 96
[2016-09-24 05:37] LABS: BASOPHILS % (AUTO) 0 % (0-3); EOSINOPHILS % (AUTO) 0 % (0-5); MONOCYTES % (AUTO) 8.7 % (4-12); Mean Corpuscular Hemoglobin 31.1 pg (27.0-35.0); Mean Corpuscular Volume 87.2 fL (81-100); NEUTROPHILS % (AUTO) 80.7 % (40-74); Platelet Count 280 bil/L (150-400)
[2016-09-24] MEDS ORDERED: 0.9% Sodium Chloride 1,000 ML IV SCH (05:40)
[2016-09-24] MEDS: Famotidine Inj 20 MG in IV Premix 1 EACH IV SCH (09:30)
--- NOTE | 2016-09-24 09:50 | PCM.PNSURG ---
Subjective Date of Service: Sep 24, 2016 Date of Service: Sep 24, 2016 Visit Information: Reason for Visit Biliary Colic Surgery/Surgery Date Post-Op Day # 1 status post gallstone pancreatitis Date of Admission: Sep 21, 2016 at 13:50 Hospital Day # Subjective: Patient seen with Gen. surgery today in bed feeling well without significant reported pain, nausea, or vomiting. The patient is tolerating a normal diet, having regular bowel movements, passing gas, and ambulating without difficulty. There is continued mild umbilical incisional drainage that the nurse reinforced with gauze. Postop General: No Complaints Gastrointestinal: Good Appetite, Tolerating Oral Feedings, Passing Flatus, Passing Stool Pain Management: No or Minimal Pain Postop Activity: Ambulating Independently Objective Vital Sign- Last 8 Hours Date Time Temp Pulse Resp B/P Pulse Ox O2 Delivery O2 Flow Rate FiO2 09/24/16 05:13 36.7 69 16 121/66 96 Room Air Intake and Output- Last 8 Hour 09/24/16 Cumulative From/Thru 07:00 09/21/16 11:39 - 09/24/16 06:31 Intake Total 2189 ml 47249 ml Output Total 850 ml 4601 ml Balance 1339 ml 5822 ml Intake Oral 800 ml 1600 ml IV Total 1389 ml 8823 ml Output Urine Total 850 ml 4600 ml Estimated Blood Loss 1 ml # Bowel Movements 0 0 General: Alert, Oriented X3, Cooperative, No Acute Distress Lungs: Clear to Auscultation Heart: Exam Unremarkable Abdomen: Soft, Appropriately tender, Non-distended SURGICAL WOUND : Wound General Appearence: Steri Strips, No Erythema, No Discharge, No Inflammatory Changes, Other (Minimal melyssa-incisional blood appreciated with dressing.) Dressing & Drainage Status: Saturated (mild) Extremities: Thigh&Calf Soft/Nontender Neuro: Normal Speech Catheters: None Result Diagram: 09/24/1651709/24/16517 Assessment & Plan Impression Primary Diagnosis: 1. Acute cholecystitis-Resolved 2. Acute pancreatitis-Resolving 3. Status post laparoscopic cholecystectomy with negative interoperative cholangiogram Problems: Plan 1. Stable for discharge home today from a general surgery standpoint and we will sign off for now. 2. Change umbilical dressing daily or as needed. The remaining incisional Steri-Strips and Band-Aids intact until they fall off on their own. May shower but do not soak. Activity as pain allows. Seek immediate medical attention for significant intractable fever, chills, nausea, vomiting, signs of wound infection, &/or pain. 3. Recommend low-fat diet advance as tolerated. 4. Approximately # 15 Percocet is appropriate on discharge for severe breakthrough pain otherwise OTC analgesics when necessary as directed is recommended. 5. Follow-up with Physician Paper Cup Machine Operator Aiden Covarrubias PA-C in Outpatient [facility] Clinic the September 27 or September 30. Resuscitation Status: CPR: Attempt Resuscitation ( is his ADM) Mikhail Lopez PA-C Sep 24, 2016 09:50
[2016-09-24 10:54] VITALS: BP 125/75; PULSE 78; RESP 19; O2SAT 97
--- NOTE | 2016-09-24 12:38 | NUR ---
Social Work- Readiness for Discharge/ Multidisciplinary Rounds Data: EMR reviewed. Pt is on day 3 of hospitalization for biliary colic per H&P. Pt discussed in multidisciplinary rounds. Pt is likely to discharge today. SW met with pt at bedside regarding discharge plan, pt is agreeable to discharge. Pt declined questions or concerns related to discharge. Pt will discharge home with his mother to transport via POV. No discharge needs identified. SW will continue to follow. Assessment: Pt who is independent at baseline. Plan: Pt will discharge home with his mother to transport via POV. No discharge needs identified. SW will continue to follow. MIKE Wynne
--- NOTE | 2016-09-24 12:52 | PCM.PNMED ---
Subjective Date of Service Sep 24, 2016 Subjective Pt reports imp abd pain. Was some serosanguinous drainage but imp from yesterday. Exam Vital Signs Vital Sign - Last Date Time Temp Pulse Resp B/P Pulse Ox O2 Delivery O2 Flow Rate FiO2 09/24/16 10:54 36.8 78 19 125/75 97 Room Air 09/23/16 14:10 2 Intake and Output 09/23/16 09/23/16 09/24/16 Cumulative From/Thru 15:00 23:00 07:00 09/21/16 11:39 - 09/24/16 06:31 Intake Total 2050 ml 800 ml 2189 ml 29890 ml Output Total 751 ml 850 ml 4601 ml Balance 2050 ml 49 ml 1339 ml 5822 ml Intake Oral 800 ml 800 ml 1600 ml IV Total 2050 ml 1389 ml 8823 ml Output Urine Total 750 ml 850 ml 4600 ml Estimated Blood Loss 1 ml 1 ml # Bowel Movements 0 0 Exam General NAD HEENT NCAT Heart: RRR, no s3/s4 Lungs: CTA, no crackles or wheezes Abd: Mild distension, bowel sounds+, Umbilical Incision site- some serosang drainage. Non-purulent. Ext: neg for edema Neuro: No focal deficits Psych: Neg for agitation IVs and Medications Medications Reviewed: Medications were reviewed in detail Lab and Diagnostics Result Diagram: 09/24/1651709/24/16517 X-Rays, CTs and MRIs INDICATIONS: Pancreatitis IMPRESSION: Cholelithiasis and or gallbladder sludge. There is mild gallbladder wall thickening raising possibility of acute cholecystitis. Please correlate clinically and with LFTs. Peripancreatic fat stranding which is suspicious for acute pancreatitis. Recommend correlation with pancreatic enzymes. No abscess seen. Scattered ascites. Normal appendix. Dictated by: Fuentes Zambrano M.D. on 09/21/2016 at 14:58 Approved by: Fuentes Zambrano M.D. on 09/21/2016 at 15:01 Assessment & Plan #Status post laparoscopic cholecystectomy with negative interoperative cholangiogram POD #1, active. - Per 09/24- surgery note- 1. Stable for discharge home today from a general surgery standpoint and we will sign off for now. 2. Change umbilical dressing daily or as needed. The remaining incisional Steri-Strips and Band-Aids intact until they fall off on their own. May shower but do not soak. Activity as pain allows. Seek immediate medical attention for significant intractable fever, chills, nausea, vomiting, signs of wound infection, &/or pain. 3. Recommend low-fat diet advance as tolerated. 4. Approximately # 15 Percocet is appropriate on discharge for severe breakthrough pain otherwise OTC analgesics when necessary as directed is recommended. 5. Follow-up with Physician Medical Laboratory Technical Officer Aiden Covarrubias PA-C in [facility] the September 27 or September 30. # Acute cholecystitis poa active resolved -- Consult general surgery, they are already aware -- Pain control as above -- Patient is s/p cholecystectomy #AM Hypoglycemia acute, resolved. -- Patient was not eating since 4-5 days ago at home, was npo here. -- Hypoglycemia Protocol was given -- A1C is ordered and pending. # Acute Pancreatitis, POA resolved -- NSS 200 cc/hr--> NSS 150 cc/hr--> NSS 125 cc/hr -- Improved control with Dilaudid 0.25 mg every 3 hours when necessary, ketorolac 30 mg every 6 hours when necessary -- MRCP is ordered: "No biliary ductal dilatation or definite choledocholithiasis." Discussed case on curbside with Dr. Blair, no formal gI consult at this time --Lipase is trending down, 131 on 09/23. Surgery took pt to OR, lap lindy was done. No postop complications Nausea, present on admission -- Continue IV Zofran Abdominal pain, present on admission -- Continue pain medications as above VTE Mechanical Devices: Intermittant Pneumatic CD Resuscitation Status: CPR: Attempt Resuscitation ( is his ADM) Loi Weber MD Sep 24, 2016 12:52
--- NOTE | 2016-09-24 13:01 | PCM.DIMED ---
Discharge Instructions Date of Service Sep 24, 2016 Dates of Hospitalization Sep 21, 2016 at 13:50 Discharge Diagnosis Discharge Diagnosis #Status post laparoscopic cholecystectomy with negative interoperative cholangiogram POD #1, active. # Acute cholecystitis poa active resolved #Hypoglycemia acute, resolved. # Acute Pancreatitis, POA resolved Medication Instructions Additional med instructions - Percocet is for severe breakthrough pain otherwise OTC analgesics when necessary as directed is recommended. Diet Discharge Diet: Low fat, Low Sodium Call your provider Call your provider for: Fever or Chills Patient Instructions Patient Instructions -Change umbilical dressing daily or as needed. The remaining incisional Steri- Strips and Band-Aids intact until they fall off on their own. May shower but do not soak. Activity as pain allows. Seek immediate medical attention for significant intractable fever, chills, nausea, vomiting, signs of wound infection, &/or pain. - Recommend low-fat diet advance as tolerated. Follow-up plan - Follow-up with Physician Supervisor Display Fabrication Aiden Covarrubias PA-C in [facility]patient [facility] Clinic the September 27 or September 30. Loi Wbeer MD Sep 24, 2016 13:01
[2016-09-24] MEDS ORDERED: OXYC1TAB24 PO (13:02)
[2016-09-24] MEDS ORDERED: SENN-133 PO (13:02)
--- NOTE | 2016-09-24 13:03 | PCM.DC.MED ---
Discharge Summary Date of Service Sep 24, 2016 Dates of Hospitalization Date of Hospital Admission Sep 21, 2016 at 13:50 Date of Discharge: Sep 24, 2016 Providers: Admitting Physician: Alexsandra Wing MD Primary Care Physician: Ronny Martinez MD Attending Physician: Jessa Cortes MD Diagnosis at Time of Discharge Diagnosis at Time of Discharge #Status post laparoscopic cholecystectomy with negative interoperative cholangiogram POD #1, active. # Acute cholecystitis poa active resolved #Hypoglycemia acute, resolved. # Acute Pancreatitis, POA resolved Procedures XRay, CTs & MRIs INDICATIONS: Pancreatitis IMPRESSION: Cholelithiasis and or gallbladder sludge. There is mild gallbladder wall thickening raising possibility of acute cholecystitis. Please correlate clinically and with LFTs. Peripancreatic fat stranding which is suspicious for acute pancreatitis. Recommend correlation with pancreatic enzymes. No abscess seen. Scattered ascites. Normal appendix. Dictated by: Fuentes Zambrano M.D. on 09/21/2016 at 14:58 Approved by: Fuentes Zambrano M.D. on 09/21/2016 at 15:01 Brief History Per [facility] 09/22/[address] Kingston. Mr. Dillard is a 31 year old male who presents to the ED today with right upper quadrant pain and epigastric pain. The patient reports he has been intermittently experiencing RUQ pain for the past 18 months. In July of this year he was admitted for 3 days at [facility] with gallstone pancreatitis after presenting with a severe episode of pain. His lipase at that time was in excess of 10,000 and he was treated with conservative management. He has since been adherent to a low fat diet but continues to experience intermittent, self- limited bouts of crampy pain. It is in this context that 2 days ago he developed severe RUQ pain, exactly similar to past episodes. This pain was rated 9/10 in severity so he was evaluated at [facility] ED. There, he was given narcotics and was discharged home. His RUQ has improved, but persists in moderate severity prompting today's visit to the [facility] ED. With further questioning he describes the pain has sharp, unrelenting, waxing and waning in intensity. He denies radiation to his shoulder blades are back. He has had no nausea but endorses one episode of vomiting during a severe wave of pain. He has had very little to eat or drink since the pain started. His last BM was 2 days ago and was presumably normal (Goes every other day at his base line). He is voiding but states his urine is more concentrated appearing. He denies jaundice or fevers. Patient states he is healthy at base line, currently in the room. As 5-110 depending on when he got pain medication In the ER patient's labs are fairly unremarkable with the exception of AST is 143 ALT is 269 lipase 3420. Hospital Course #Status post laparoscopic cholecystectomy with negative interoperative cholangiogram POD #1, active. - Per 09/24- surgery note- 1. Stable for discharge home today from a general surgery standpoint and we will sign off for now. 2. Change umbilical dressing daily or as needed. The remaining incisional Steri-Strips and Band-Aids intact until they fall off on their own. May shower but do not soak. Activity as pain allows. Seek immediate medical attention for significant intractable fever, chills, nausea, vomiting, signs of wound infection, &/or pain. 3. Recommend low-fat diet advance as tolerated. 4. Approximately # 15 Percocet is appropriate on discharge for severe breakthrough pain otherwise OTC analgesics when necessary as directed is recommended. 5. Follow-up with Physician Emergency Medicine Nurse Practitioner Aiden Covarrubias PA-C in [facility]patient [facility] the September 27 or September 30. # Acute cholecystitis poa active resolved -- Consult general surgery, they are already aware -- Pain control as above -- Patient is s/p cholecystectomy #AM Hypoglycemia acute, resolved. -- Patient was not eating since 4-5 days ago at home, was npo here. -- Hypoglycemia Protocol was given -- A1C is ordered and pending. # Acute Pancreatitis, POA resolved -- NSS 200 cc/hr--> NSS 150 cc/hr--> NSS 125 cc/hr -- Improved control with Dilaudid 0.25 mg every 3 hours when necessary, ketorolac 30 mg every 6 hours when necessary -- MRCP is ordered: "No biliary ductal dilatation or definite choledocholithiasis." Discussed case on curbside with Dr. Blair, no formal gI consult at this time --Lipase is trending down, 131 on 09/23. Surgery took pt to OR, lap lindy was done. No postop complications Nausea, present on admission -- Continue IV Zofran Abdominal pain, present on admission -- Continue pain medications as above Exam Vital Signs (Last) Date Time Temp Pulse Resp B/P Pulse Ox O2 Delivery O2 Flow Rate FiO2 09/24/16 10:54 36.8 78 19 125/75 97 Room Air 09/23/16 14:10 2 Test 09/21/16 12:27 09/21/16 15:38 09/22/16 06:10 09/22/16 14:08 Hold Shafer Top Tube Received (Received) Hold Urine Received (Received) Magnesium Level 1.7mg/dL (1.6-2.6) Triglycerides Level 79mg/dL (0-149) Cholesterol Level 110mg/dL (100-199) LDL Cholesterol, Calculated 60.200mg/dL (0-99) VLDL Cholesterol 15.800mg/dL HDL Cholesterol 34mg/dL (>39) Cholesterol/HDL Ratio 3.24 (0.0-4.4) Anti-Nuclear Antibody Screen Negative (Negative) Test 09/23/16 04:53 09/23/16 04:56 09/24/16 05:18 Amylase Level 348U/L (28-100) Hemoglobin A1c 5.3% (4.8-5.6) White Blood Count 9.7th/mm3 (3.8-10.1) Red Blood Count 4.53mil/mm3 (4.40-5.80) Hemoglobin 14.1g/dL (13.8-17.2) Hematocrit 39.5% (41.0-50.0) Mean Corpuscular Volume 87.2fL (81-100) Mean Corpuscular Hemoglobin 31.1pg (27.0-35.0) Mean Corpuscular Hemoglobin Concent 35.7% (32.0-37.0) Red Cell Distribution Width 12.1% (12.3-15.4) Platelet Count 280bil/L (150-400) Neutrophils (%) (Auto) 80.7% (40-74) Lymphocytes (%) (Auto) 10.4% (14-46) Monocytes (%) (Auto) 8.7% (4-12) Eosinophils (%) (Auto) 0% (0-5) Basophils (%) (Auto) 0% (0-3) Sodium Level 141mEq/L (134-144) Potassium Level 3.9mEq/L (3.5-5.2) Chloride Level 104mEq/L (97-108) Carbon Dioxide Level 22mmol/L (18-29) Blood Urea Nitrogen 7mg/dL (6-20) Creatinine 0.80mg/dL (0.76-1.27) Estimat Glomerular Filtration Rate 119mL/min (>59) Glucose Level 127mg/dL (60-99) Calcium Level 8.8mg/dL (8.5-10.1) Total Bilirubin 0.4mg/dL (0.0-1.2) Aspartate Amino Transf (AST/SGOT) 17U/L (0-50) Alanine Aminotransferase (ALT/SGPT) 75U/L (0-44) Alkaline Phosphatase 63U/L (25-150) Total Protein 6.1g/dL (6.4-8.4) Albumin 3.8g/dL (3.4-5.0) Lipase 73U/L (13-60) Discharge Medications As needed Sennosides (Senna) 8.6 Mg Tablet 17.2 MG PO BID PRN PRN For Constipation Prescribed by: JESSA CORTES MD oxyCODONE-Acetaminophen 5-325 mg (oxyCODONE-Acetaminophen 5-325 mg) 1 Each Tablet 1-2 TAB PO Q3H PRN PRN For Pain Prescribed by: JESSA CORTES MD Additional med instructions - Percocet is for severe breakthrough pain otherwise OTC analgesics when necessary as directed is recommended. Followup Plan Disposition: Home Follow-up plan - Follow-up with Physician Emergency Medicine Nurse Practitioner Aiden Covarrubias PA-C in Outpatient [facility] Clinic the September 27 or September 30. Discharge Diet: Low fat, Low Sodium Patient Instructions -Change umbilical dressing daily or as needed. The remaining incisional Steri- Strips and Band-Aids intact until they fall off on their own. May shower but do not soak. Activity as pain allows. Seek immediate medical attention for significant intractable fever, chills, nausea, vomiting, signs of wound infection, &/or pain. - Recommend low-fat diet advance as tolerated. Jessa Cortes MD Sep 24, 2016 13:03
--- NOTE | 2016-09-24 14:04 | NUR ---
Social Work- Discharge Data: Pt to discharge today, discharge orders are active. Pt to discharge home with mother to transport via POV. No discharge needs identified. Assessment: Pt who is independent at baseline. Plan: Pt to discharge home with mother to transport via POV. No discharge needs identified. Rosa M Wallace MSW
--- NOTE | 2016-09-24 14:49 | NUR ---
Discharge Pt discharged at 1441 walking to private vehicle with family. Reports no pain and all dressings are CDI. Umbilicus dressing was changed this AM by . Pt teaching done on dressing changes and supplies provided. IV removed intact. VSAlley, TRAMAINE, A&O x 3. Pt has discharge instructions, care notes and rx's. Pt has all belongings and had no questions at discharge.
--- NOTE | 2016-09-25 17:24 | PATH ---
SURGICAL PATHOLOGY Attending Physician:Alexsandra Wing MD CASE STATUS: Signed Out PATIENT NAME: MILY ESQUEDA PID: [id number] : 1985 DATE COLLECTED:09/23/2016 00:00 SPECIMEN: Gallbladder CLINICAL HISTORY: GALLSTONES PANCREITIS 1). GALLBLADDER FINAL DIAGNOSIS: 1.GALLBLADDER, LAPAROSCOPIC CHOLECYSTECTOMY: MILD CHRONIC CHOLECYSTITIS, CHOLESTEROLOSIS, AND CHOLELITHIASIS. ICD10 K80.7 GROSS DESCRIPTION: Received in formalin, labeled with the patient' s name and "gallbladder", is an intact gallbladder measuring 10.0 x 3.0 x 0.5 cm. The serosal surface is skinner and smooth. The specimen is opened and contains a large amount of green-brown, viscous bile. There are multiple skinner-yellow irregular stones ranging from 0.1 x 0.1 x 0.1 cm to 1.0 x 1.0 x 1.0 cm. The wall is thin and palpable and measures up to 0.3 cm in thickness with a green and velvety inner lining. No masses or lesions are identified. Registered Nurse Maternity sections are taken from the cystic duct as well as the proximal, middle, and distal body of the gallbladder and are submitted in one cassette. [id number]) MICRO DESCRIPTION: See diagnosis. ICD-9 CODES: CPT CODES: 1: 70735 Electronically Signed Out Katya Castañeda MD [facility] [address], [place] [address] Technical component performed at [facility], [facility] [address], [place], [address]
== END 2016-09-24 14:44 | disposition home or self-care (01) | DRG 418 ==
LOC: SED 11:37 → OSC 13:50 → OBSVTOIN 13:50 → OSC 15:36
PROVIDERS: ADMIT Student in an Organized Health Care Education/Training Program; ATTEND Family Medicine
PROC: BF001ZZ Plain Radiography of Bile Ducts using Low Osmolar Contrast (ICD-10-PCS; 2016-09-23)
PROC: 0FT44ZZ Resection of Gallbladder, Percutaneous Endoscopic Approach (ICD-10-PCS; principal; 2016-09-23 11:30)
DX: K85.10 Biliary acute pancreatitis without necrosis or infection (principal); K80.00 Calculus of gallbladder with acute cholecystitis without obstruction; E16.2 Hypoglycemia, unspecified